=== PATIENT | male | born 1985 | race Caucasian/White ===

== ENCOUNTER 2020-09-15 09:20 | Emergency (ER) | payer SELFPAY ==
[~2020-09-15] VITALS: Ht 177.8 cm; Wt 76.2 kg
[2020-09-15 09:29] VITALS: BP 136/87
--- NOTE | 2020-09-15 10:44 | Diagnostic Imaging Report ---
Indications: The trauma Technique: Spiral acquisitions obtained through the brain. Angled axial and coronal 5 x 5 mm slices were reconstructed. Total dose length product 2144 mGycm. CTDI vol(s) 53, 53 mGy. Dose reduction achieved using automated exposure control Comparison: None. Findings: No acute intracranial hemorrhage or edema, mass effect, nor midline shift. Normal curiel-white differentiation. Normal size ventricles and extra axial CSF spaces. The mastoids are clear. The calvarium is intact. The sinuses are clear. The orbits are unremarkable. Impression: Negative The CT scanner at [facility] is accredited by the [employer] and the scans are performed using protocols designed to limit radiation exposure to as low as reasonably achievable to attain images of sufficient resolution adequate for diagnostic evaluation.
--- NOTE | 2020-09-15 10:52 | Diagnostic Imaging Report ---
Indications: 15 Technique: Spiral images obtained through the facial bones. No IV contrast utilized. Multiplanar reconstructions were generated.Total dose length product 379 mGycm. CTDIvol(s) 15 mGy. Dose reduction achieved using automated exposure control Comparison: none Findings: There is right infraorbital and malar region soft tissue swelling. No acute fracture. No worrisome sinus air-fluid level. There is slight mucosal irregularity of the vallecula. The remainder of the upper aerodigestive tract appears unremarkable There is minimal mucosal disease involving the left maxillary sinus. There is rightward nasal septal deviation. 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 There is evidence of prior left maxillary molar extractions. The included cervical spine appears unremarkable. Impression: Right infraorbital and malar region soft tissue swelling. No acute bony trauma Slight mucosal irregularity of the vallecula. 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 Presumably represents a large apical root abscess. The CT scanner at [facility] is accredited by the [employer] and the scans are performed using protocols designed to limit radiation exposure to as low as reasonably achievable to attain images of sufficient resolution adequate for diagnostic evaluation.
[2020-09-15 11:06] VITALS: BP 136/87
--- NOTE | 2020-09-21 06:48 | Emergency Room Report ---
History of Present Illness General Chief Complaint: Medical Clearance Source: Patient Present Illness HPI 35-year-old male presents for medical clearance. Brought in by EMS and [employer]. Has a bruise around his right eye. Does not know how it happened. Admits to drug use. Pain is dull, 5 out of 10, nonradiating. Denies any other injuries. No other aggravating relieving factors. Denies any other associated symptoms Allergies: Coded Allergies: No Known Allergies (Unverified , 09/15/20) COVID-19 Screening Contact w/high risk pt: No Experienced COVID-19 symptoms?: No COVID-19 Testing performed PROCUREMENT CONSULTANT: No Patient History Past Medical History: HTN Past Surgical History: none Pertinent Family History: none Social History: Denies: smoking, alcohol use, drug use Immunizations: UTD Reviewed Nursing Documentation: PMH: Agreed; PSxH: Agreed Nursing Documentation-PMH Past Medical History: No History, Except For Hx Cardiac Problems: Yes - "Tachycardia" Hx Hypertension: Yes Review of Systems All Other Systems: negative except mentioned in HPI Physical Exam Sp02 EP Interpretation: reviewed, normal General Appearance: no apparent distress, alert, GCS 15, non-toxic Head: normocephalic, other - Periorbital bruising/ecchymosis on right Eyes: bilateral eye normal inspection, bilateral eye PERRL, bilateral eye EOMI ENT: hearing grossly normal, normal pharynx, no angioedema, normal voice Neck: full range of motion, supple/symm/no masses Respiratory: chest non-tender, lungs clear, normal breath sounds, speaking full sentences Cardiovascular #1: regular rate, rhythm, no edema Cardiovascular #2: 2+ carotid (R), 2+ carotid (L), 2+ radial (R), 2+ radial (L), 2+ dorsalis pedis (R), 2+ dorsalis pedis (L) Gastrointestinal: normal bowel sounds, non tender, soft, non-distended, no guarding, no rebound Rectal: deferred Genitourinary: normal inspection, no CVA tenderness Musculoskeletal: back normal, normal range of motion, gait/station normal, non- tender Neurologic: alert, motor strength/tone normal, oriented x3, sensory intact, responsive, speech normal Psychiatric: judgement/insight normal, memory normal, mood/affect normal, no suicidal/homicidal ideation Reflexes: 3+ bicep (R), 3+ bicep (L), 3+ tricep (R), 3+ tricep (L), 3+ knee (R), 3+ knee (L) Lymphatic: no adenopathy Medical Decision Making Diagnostic Impression: Primary Impression: Medical clearance for incarceration Additional Impression: Head injury Qualified Codes: S09.90XA - Unspecified injury of head, initial encounter ER Course Hospital Course 35-year-old male presents with right eye bruising and pain. Does not remember what happened. In police custody Differential diagnoses include: skull fx, intracranial injury, concussion Clinical course Patient placed on stretcher. After initial history and physical I ordered CT head/facial bones CT head and facial bones shows no acute process. I discussed findings with patient. Safe for discharge. Is cleared for police incarceration Diagnosis - head injury, medical clearance for incarceration Stable and discharged to police custody. Followup with PMD. Return to ED if symptoms recur or worsen CT/MRI/US Diagnostic Results CT/MRI/US Diagnostic Results #1: Imaging Test Ordered: CT Head Impression Procedure: CT Head no Contrast Indications: The trauma Technique: Spiral acquisitions obtained through the brain. Angled axial and coronal 5 x 5 mm slices were reconstructed. Total dose length product 2144 mGycm. CTDI vol(s) 53, 53 mGy. Dose reduction achieved using automated exposure control Comparison: None. Findings: No acute intracranial hemorrhage or edema, mass effect, nor midline shift. Normal curiel-white differentiation. Normal size ventricles and extra axial CSF spaces. The mastoids are clear. The calvarium is intact. The sinuses are clear. The orbits are unremarkable. Impression: Negative CT/MRI/US Diagnostic Results #2: Imaging Test Ordered: CT Facial Bones Impression Procedure: CT Facial Bones no Contrast Indications: 15 Technique: Spiral images obtained through the facial bones. No IV contrast utilized. Multiplanar reconstructions were generated.Total dose length product 379 mGycm. CTDIvol(s) 15 mGy. Dose reduction achieved using automated exposure control Comparison: none Findings: There is right infraorbital and malar region soft tissue swelling. No acute fracture. No worrisome sinus air-fluid level. There is slight mucosal irregularity of the vallecula. The remainder of the upper aerodigestive tract appears unremarkable There is minimal mucosal disease involving the left maxillary sinus. There is rightward nasal septal deviation. 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 There is evidence of prior left maxillary molar extractions. The included cervical spine appears unremarkable. Impression: Right infraorbital and malar region soft tissue swelling. No acute bony trauma Slight mucosal irregularity of the vallecula. 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 Presumably r epresents a large apical root abscess. Status: improved Disposition: HOME, SELF-CARE Condition: Stable Scripts Unable to Obtain Active Prescriptions or Reported Meds Referrals: NOT CHOSEN IPA/,REFERRING (PCP) Ky Ruiz. [facility] Departure Forms: [facility] Clearance Patient Instructions: Head Injury, Adult, [id number] Romie Scott MD Sep 21, 2020 06:48
== END 2020-09-15 11:08 | disposition home or self-care (01) ==
LOC: EMR 09:45
DX: S00.83XA Contusion of other part of head, initial encounter (principal); S09.90XA Unspecified injury of head, initial encounter; I10 Essential (primary) hypertension; X58.XXXA Exposure to other specified factors, initial encounter; Y92.9 Unspecified place or not applicable
CPT/HCPCS: 70450; 70486; 99284